=== PATIENT | male | born 1965 | race Caucasian/White ===

== ENCOUNTER 2021-02-17 18:55 | Inpatient (IN) | payer OTHER ==
[~2021-02-17] VITALS: Ht 175.3 cm; Wt 108.3 kg
[2021-02-17] MEDS ORDERED: ACETAMINOPHEN325 M1 PO (20:19)
[2021-02-17] MEDS ORDERED: ASA81BEC PO (20:20)
[2021-02-17] MEDS ORDERED: ARICEPT10 M1 PO (20:20)
[2021-02-17] MEDS ORDERED: FLUOXETINE HCL20 M1 PO (20:20)
[2021-02-17] MEDS ORDERED: LEVO-T50 MCG PO (20:20)
[2021-02-17] MEDS ORDERED: ELIQUIS5 MG PO (20:20)
[2021-02-17] MEDS ORDERED: NAMENDA 10 MG T10 MG PO (20:21)
[2021-02-17] MEDS ORDERED: RISPERDAL 1 MG T1 MG PO (20:21)
[2021-02-17] MEDS ORDERED: PROVERA2.5 MG PO (20:21)
[2021-02-17] MEDS ORDERED: OXYBUTYNIN 5 MG5 M2 PO (20:21)
[2021-02-17] MEDS ORDERED: SENNA PLUS TAB1 EACH PO (20:22)
--- NOTE | 2021-02-18 03:24 | NUR ---
ASSESSMENT: PT ALERT TO NAME AND PLACE. DID NOT KNOW THE DATE, THE PRESIDENTS NAME, THE DAY OF THE WEEK NOR THE SEASON. PT SLEEPS IN SUNGLASSES, STATE THAT THEY HELP HIM TO SLEEP BETTER. NO INJURIES, SCARS, NOR WOUNDS NOTED. VSS, AFEBRILE. PT CALM AND COOPERATIVE FOR NOW. AN EVAL FOR PT TO EVAL/TREAT FOR GAIT. HOPITALIST WAS CONSULTED. Familia SOTO GAVE TELEPHONE ORDERS FOR MEDS TO CONTINUE WITH PT. PT DID NOT VOICE ANY CONCERNS. WILL CONTINUE TO MONITOR.
[2021-02-18 09:41] LABS: FOLIC ACID 9.9 ng/mL (8.6-58.9)
--- NOTE | 2021-02-18 16:13 | NUR ---
Assumed pt care at 0700. pt was in his room resting. Alert and oriented to self. Assessments completed, vss. Pt took meds whole, no difficulty noted. Denies si/hi, denies pain at this time. No sign of acute distress noted upon assessments. Make needs known to staff. ambulates with a walker. calm, happy and cooperative with care. consent forms signed by DPOA via the phone. Dr Nguyễn, and Rigoberto assessed pt. DPOA visited pt during AM visiting hours. pt wander the unit. AT this time pt is sitting in the day room. Will continue to monitor pt.
[2021-02-18 19:56] VITALS: BP 130/97
--- NOTE | 2021-02-18 23:58 | NUR ---
ASSUMED CARE AT 1900, PATIENT LYING IN BED. NO S/S OF DISTRESS OR DISCOMFORT. DENIES PAIN/SI/HI/AVH/DEPRESSION. TOOK MEDS WHOLE WITHOUT DIFFICULTY, C/O WATER NOT BEING COLD ENOUGH. APPRECIATED BEING GIVEN ICE WATER. NO INNAPPROPRIATE BEHAVIORS NOTED. PATIENT ON FALL PRECAUTIONS, BED ALARM ON. WILL MONITOR.
[2021-02-19 06:36] LABS: CHOLESTEROL 113 mg/dL (<200); HDL CHOLESTEROL 38 mg/dL (>40); LDL CHOLESTEROL 60 mg/dL (<100); TRIGLYCERIDE 77 mg/dL (<150); VLDL 15 mg/dL (<40)
[2021-02-19 06:37] LABS: SERUM ASSESSMENT Clear
[2021-02-19 09:12] VITALS: BP 109/79
--- NOTE | 2021-02-19 09:46 | NUR ---
New admit to [facility] with dementia and inappropriate behavior. Ate 100%, + BM. Folate is depleted 9.9-on replacement. Presents low nutrition risk. Will follow weekly intake and wt trends.
--- NOTE | 2021-02-19 14:41 | NUR ---
PT VERY FLAT TODAY. AFEBRILE, ADEQUATE UOP, NO BM, APPROPRIATE APPETITE. NO BEHAVIORAL ISSUES. PT DID NOT SEEM INTERESTED IN JOINING IN ON GROUP ACTIVITIES. PT HAS BEEN THOUROUGHLY UPDATED AND EDUCATED ON CONDITION AND POC.
[2021-02-19 19:37] VITALS: BP 130/82
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
[2021-02-20 01:07] LABS: GLYCOHEMOGLOBIN (HGB A1C) 5.9 % (4.8-5.6)
--- NOTE | 2021-02-20 02:50 | NUR ---
PATIENT CARE RESUMED AT 1900. PATIENT SAT AT TABLE IN DAY AREA COLORING WITH A PEER. NO INNAPPROPRIATE/SEXUAL BEHAVIORS OBSERVED OR REPORTED. 1 X ASSIST WITH TOILETING AND ADLS. INDEPENDENT WITH WALKER, UNSTEADY AT TIMES. CONFUSED, ORIENTED TO SELF ONLY. HAD LARGE BM X 2, ONCE IN BRIEF AND ONCE IN TOILET. INCONTINANT OF URINE. TOOK MEDS WHOLE WITHOUT DIFFICULTY.
[2021-02-20 08:37] VITALS: BP 126/81
--- NOTE | 2021-02-20 11:34 | NUR ---
PT ALERT AND ORIENTED TIMES FOUR, WITH BRIGHT AFFECT. PT DENIES SI/HI/AH/VH/PAIN/SOA. PT INTERACTS WELL WITH STAFF AND PEERS. PT TOLEARTES MEDS AND MEALS. PT UP WALKING AROUND THYE UNIT WITH A WALKER AND STEADY GAIT. WILL CONTINUE TO MONITOR.
[2021-02-20 19:40] VITALS: BP 131/71
[2021-02-20 21:11] VITALS: BP 131/71
--- NOTE | 2021-02-20 21:59 | NUR ---
2128 RESUMMED CARE FROM DAY SHIFT THIS PM, PATIENT IN ROOM LYING QUIET IN BED. PATIENT ALERT ORIENTED TIMES 4 PATIENT DENIES SI/HI/AH/VH AT PRESENT. PATIENTS ABDOMEN SOFT BOWEL SOUNDS PRESENT, PATIENTS LUNGS CLEAR. PATIENT CALM COOPERATIVE TOOK MEDICATION WITHOUT INCDENCE. PATIENT HAS NOT DISPLAYED ANY BEHAVIORS WILL CONTINUE TO MONITOR FOR SAFETY AND BEHAVIORS.
[2021-02-21 08:37] VITALS: BP 114/73
--- NOTE | 2021-02-21 10:53 | NUR ---
PLEASANT AND COOPERATIVE WITH REQUESTS OF STAFF-IS VISIBLE IN DAYROOM BUT NO NOTED INTERACTION WITH PEERS-EITHER WATCHING TV OR SITTING QUIETLY DURING UNSTRUCTURED TIME. DOES ATTEND SCHEDULED GROUPS AND WILL RESPOND WITH PROMPTING. GAIT STEADY WITHOUT ASSISTIVE DEVICES. NO SEXUALLY INAPPROAPRIATE BEHAVIOR NOTED OR REPORTED. NEUTRALL AFFECT. EATING WELL. ORIENTED TO PERSON/PLACE.
[2021-02-21 19:33] VITALS: BP 138/82
[2021-02-21 20:10] VITALS: BP 138/82
--- NOTE | 2021-02-22 03:03 | NUR ---
PATINET CARE WAS RESUMED AT 1900. HE IS ALERT AND SITTING IN THE DINING AREA. HE DENES PAINS/SI/AVH/HI. HE IS CONTINET OF BOWEL AND BLADDER. LUNGS ARE CLEAR, BS ACTIVE X4 QUADS. TOOK HIS MEDS WHOLE AND NO BEHAVOIOR RECORDED AT THIS TIME. BED IS LOW, LOCKED ALARMED AND YELLOW SOCKS AND TOPS ARE ON. Q 12 MINUTES CHECKS ARE ONGOING CONTINUE CARE.
[2021-02-22 09:06] VITALS: BP 117/78
[2021-02-22 09:55] VITALS: BP 117/78
--- NOTE | 2021-02-22 10:59 | NUR ---
1058 RESUMMED CARE FROM OVERNIGHT THIS AM, PATIENT SITTING I DAY ROOM QUIET. PATIENT ATE BREAKFAST TOOK MEDICATION WITHOUT INCIDENCE PATIENT ALERT ORIENTED TIMES 3. PATIENT DENIES SI/HI/AH/VH AT PRESENT. PATIENTS ABDOMEN SOFT BOWEL SOUNDS PRESENT. PATIENTS LUNGS CLEAR PATIENT CALM COOPERATIVE HAS NOT DISPLAYED ANY BEHAVIORS. PATIENT PARTICIPATED IN GROUPS WILL CONTINUE TO MONITOR PATIENT FOR SAFETY AND BEHAVIORS.
--- NOTE | 2021-02-22 13:42 | NUR ---
RUBEN contacted De and gave a verbal update on pt; she explained that pt has not had any behaviors and will likely discharge by end of week. He said okay. He asked SW to fax a referral to [facility]. He voiced understanding that if [facility] does not take him when he is ready for d/c that he will go back to [facility]. RUBEN asked if they were willing to see how pt responds when he returns as opposed to finding new placment. De explained that [facility] is now involved and there has been complications with that, so that is why finding new placement is necessary. RUBEN faxed a referral to [facility]. RUBEN faxed updates to [facility] at [phone]. When pt is ready for d/c De will be involved at [phone]. RUBEN team will continue to follow pt during her stay on this unit.
[2021-02-22 19:59] VITALS: BP 141/87
--- NOTE | 2021-02-23 02:13 | NUR ---
LYNDSAY CARE WAS RESUMED AT 1900. HE WAS SITTING IN THE DAY AREA WITH THER PATIENT. HE S ABLE TO VERBALIZE NEEDS/. DENIES PAINS/ SI/AVH/. SHE HAS THE YELLOW TO AND SCK IS ON. SHEIS ON Q 12 MINUTES CHECK FOE SAFETY. BED IS LOW ALARMED AND LOCKED. CONTINUE CARE AND MONITOR.
[2021-02-23 09:30] VITALS: BP 109/78
--- NOTE | 2021-02-23 09:35 | NUR ---
RUBEN received a call from Nat with the [facility] office asking if [facility] was dumping pt. RUBEN responded no, they would like new placement but they fully are aware that they must take this pt back if no new placement is identified. She said ok, and that pt's DPOA is stating that [facility] told her pt is now welcomed back. RUBEN explained that she spoke with the DPOA yesterday and told her they were looking at a facility in [place], and she was not happy with that option. Nat stated that maybe pt got information confused and she will call her back and clarify. SW Team will continue to follow pt during his stay on this unit.
--- NOTE | 2021-02-23 11:00 | NUR ---
0700 ASSUMED CARE OF PATIENT, PATIENT AMB WITH WALKER WITH STEADY GAIT. PATIENT CALM QUIET. DENIES NEEDS. PATIENT PRESENT IN GROUP THIS AM. [facility] OBSERVED SOME ADMISSION ORDERS HAD NOT BEEN COMPLETED. ADMIT ORDERS AND NURSING ORDERS HAVE BEEN ADDED AT 1035.
--- NOTE | 2021-02-23 18:52 | NUR ---
PATIENT CALM AND COOPERATIVE, LS CLEAR, BS ACTIVE. DENIES NEEDS. AMB WITH STEADY GAIT WITH WALKER.
[2021-02-23 20:10] VITALS: BP 125/68
[2021-02-23 20:15] VITALS: BP 125/68
--- NOTE | 2021-02-24 02:03 | NUR ---
PATINET CARE WAS RESUMED AT 1900. HE IS IN THE DAY ROOM AND HE WENT TO ROOM AND LAID DOWN. HE IS ALERT AND ABLE TO VERBALIZE HIS NEED. LUNGS ARE CLEAR BS ACTIVE X4 QUADS. PT WAS UPSET AT THE EARLY PART OF THE SHIFT BUT HE BECAME OKAY FEW MINUTES LATER. HE IS ON FALL PRECAUTION. BED IS LOW, LOCK AND ALARMED. HE TOOK HIS PILLS WHOLE AND NO ISUES NOTED AT THIS TIME. CONTINUE CARE AND MONITOR. HE IS ON Q 12MINUTES CHECKS
[2021-02-24 08:56] VITALS: BP 129/88
[2021-02-24 19:35] VITALS: BP 131/88
--- NOTE | 2021-02-24 21:09 | NUR ---
PATIENT CARE ASSUMED AT 1900, PATIENT IN DAY ROOM AT THAT TIME. AMBULATES WITH WALKER, GAIT STEADY THIS EVENING. A&OX2, CALM AND COOPERATIVE, APPROPRIATE AFFECT. TOOK MEDS WHOLE WITHOUT DIFFICULTY. DENIES ANY PAIN, STATES HE IS IN A "GOOD" MOOD. DENIES SI/HI/AVH. INTERACTS WITH PEERS IN DAY AREA. EASILY REDIRECTABLE.
[2021-02-25 08:50] VITALS: BP 122/79
--- NOTE | 2021-02-25 10:56 | NUR ---
RT Progress Note- Rupesh has been active in both the milieu and recreation therapy groups since his admission. He has been very social with fellow patients, but has remained appropriate, not displaying any sexual behavior. TRUCK GREASER will continue to encourage participation and behavior.
--- NOTE | 2021-02-25 11:22 | NUR ---
RUBEN contacted [facility] yesterday and spoke to both De and Remedios discharge. She said the notes RUBEN sent on 02/22 were sent to an old e-fax. She asked RUBEN to fax updates to [phone]. Remedios and RUBEN agreed upon a 1030 discharge on 02/26. She asked RUBEN to arrange transportation for pt. RUBEN faxed updates to [phone]. RUBEN arranged transportation for pt with [facility] trip# [id number]. RUBEN team will continue to follow pt during her stay on this unit.
--- NOTE | 2021-02-25 15:56 | NUR ---
0700 ASSUMED CARE OF PATIENT, PATIENT CALM AND COOPERATIVE. AMB WITH WALKER WITH STEADY GAIT. MEDICATION TAKEN WHOLE WITHOUT DIFFICULTY. PRESENT IN GROUP TODAY. PATIENT SMILES AT TIMES, DENIED NEEDS. DENIES SI/HI. LS CLEAR, BS ACTIVE.
--- NOTE | 2021-02-25 19:00 | NUR ---
1800 PATIENT NOTED WITH INCREASED AGITATION DUE TO ANOTHER PATIENT SCREAMING. PATIENT STOOD UP AND WAS ASKED TO LIFT PANTS, PATIENT STARTED YELLING AND THROWING WALKER. STAFF APPROCHED HIM AND PATIENT STARTED YELLING IN NURSES FACE. MEDICAL SALES REPRESENTATIVE CALMLY TALKED TO PATIENT REDIRECTED PATIENT TO ROOM. PATIENT LAYS IN BED. RETURNS TO DAY ROOM CALM AND QUIET.
[2021-02-25 19:39] VITALS: BP 140/85
--- NOTE | 2021-02-26 00:49 | NUR ---
RESUMED PATIENT CARE AT 1900. PATIENT A&OX2, NO S/S OF DISTRESS OR DISCOMFORT. TOOK MEDS WHOLE WITHOUT DIFFICULTY. DENIES PAIN/HI/SI/AVH. AMBULATES WITH WALKER, STEADY GAIT. CALM, COOPERATIVE. NO BEHAVIORS OBSERVED.
[2021-02-26] MEDS ORDERED: DIVALPROEX SOD500 M1 PO (08:40)
[2021-02-26] MEDS ORDERED: PEPCID20 MG PO (08:44)
[2021-02-26] MEDS ORDERED: OXYBUTYNIN 5 MG5 M2 PO (08:44)
[2021-02-26] MEDS ORDERED: RISPERDAL 1 MG T1 MG PO (08:44)
[2021-02-26] MEDS ORDERED: TIROSINT75 MCG PO (08:44)
[2021-02-26] MEDS ORDERED: FOLIC ACID1 MG PO (08:44)
[2021-02-26] MEDS ORDERED: DEPAKOTE ER250 MG PO (08:47)
[2021-02-26 09:02] VITALS: BP 113/76
--- NOTE | 2021-02-26 10:58 | NUR ---
RUBEN D/C NOTE SW faxed discharge documents to [facility]. RUBEN will file docs in pt's hospital file. No other needs for SW team to address at this time.
--- NOTE | 2021-02-26 11:17 | NUR ---
PATIENT TRANSPORTED [facility]IA [facility] AT 10:45. MORNING MEDICATIONS ADMINISTERED. PATIENT CALM AND COOPERATIVE. ALL BELONGINGS SENT WITH PATIENT. DOCUMENTATION GIVEN TO CLAIMS SORTER TO SUPPLY TO FACILITY. PATIENT PRESCRIPTIONS SENT WITH PATIENT WELL. VITALS STABLE AT TRANSPORT. HAD LARGE BOWEL MOVEMENT PRIOR TO LEAVING AND ASSISTED WITH CHANGING. SOILED JOGGING PANTS SENT ALONG WITH NOTE UNABLE TO CLEAN SINCE CLAIM[facility] HERE WAITING TO TRANSPORT PATIENT. CALLED FACILITY AT 11:25 WITH REPORT.
== END 2021-02-26 11:21 | DRG 884 ==
LOC: SBH → EDBD 02-18 00:22 → SBH 02-26 11:21
PROVIDERS: ADMIT Psychiatry & Neurology Psychiatry; ATTEND Psychiatry & Neurology Psychiatry
DX: F03.91 Unspecified dementia, unspecified severity, with behavioral disturbance (principal); I69.351 Hemiplegia and hemiparesis following cerebral infarction affecting right dominant side; I11.9 Hypertensive heart disease without heart failure; E78.5 Hyperlipidemia, unspecified; F32.9 Major depressive disorder, single episode, unspecified; E03.9 Hypothyroidism, unspecified; F63.9 Impulse disorder, unspecified; K59.09 Other constipation; Z79.899 Other long term (current) drug therapy; Z79.82 Long term (current) use of aspirin; Z87.891 Personal history of nicotine dependence
CPT/HCPCS: 10880

== ENCOUNTER 2021-02-17 19:46 | Emergency (ER) | payer OTHER ==
[~2021-02-17] VITALS: Ht 193 cm; Wt 106.6 kg
[2021-02-17] MEDS ORDERED: ACETAMINOPHEN325 M1 PO (20:19)
[2021-02-17] MEDS ORDERED: FLUOXETINE HCL20 M1 PO (20:20)
[2021-02-17] MEDS ORDERED: LEVO-T50 MCG PO (20:20)
[2021-02-17] MEDS ORDERED: ELIQUIS5 MG PO (20:20)
[2021-02-17] MEDS ORDERED: ASA81BEC PO (20:20)
[2021-02-17] MEDS ORDERED: ARICEPT10 M1 PO (20:20)
[2021-02-17] MEDS ORDERED: OXYBUTYNIN 5 MG5 M2 PO (20:21)
[2021-02-17] MEDS ORDERED: NAMENDA 10 MG T10 MG PO (20:21)
[2021-02-17] MEDS ORDERED: RISPERDAL 1 MG T1 MG PO (20:21)
[2021-02-17] MEDS ORDERED: PROVERA2.5 MG PO (20:21)
[2021-02-17] MEDS ORDERED: SENNA PLUS TAB1 EACH PO (20:22)
[2021-02-17 20:43] LABS: HEMATOCRIT 37.4 % (42.0-52.0); HEMOGLOBIN 12.5 gm/dL (14.0-18.0); MCHC 33.4 g/dL (28.0-37.0); MCV 92.8 fL (80.0-100.0); RBC 4.03 mil/uL (4.50-6.00); RDW 14.6 % (10.5-14.5); WBC 7.7 thou/uL (4.0-11.0)
[2021-02-17 20:47] LABS: CALCIUM 8.5 mg/dL (8.5-10.1); CREATININE 1.1 mg/dL (0.7-1.3)
[2021-02-17 20:53] LABS: ALBUMIN 3.5 g/dL (3.4-5.0); TOTAL BILIRUBIN 0.3 mg/dL (0.2-1.0)
[2021-02-17 23:34] LABS: URINE BILIRUBIN NEGATIVE (Negative); URINE BLOOD NEGATIVE (Negative); URINE CLARITY CLEAR; URINE COLOR YELLOW; URINE GLUCOSE-RANDOM* NEGATIVE (Negative); URINE KETONES NEGATIVE (Negative); URINE LEUKOCYTES-REFLEX NEGATIVE (Negative); URINE NITRITE-REFLEX NEGATIVE (Negative); URINE PROTEIN (DIPSTICK) NEGATIVE (Negative); URINE SPECIFIC GRAVITY >= 1.030 (1.005-1.035)
[2021-02-18 00:18] VITALS: BP 138/87
--- NOTE | 2021-02-18 07:26 | EKG ---
[facility] [address] [place] [address] ELECTROCARDIOGRAM REPORT Name: TERRENCE GANNON Room #: DEP KODI Hollis#: [id number] Admission: 02/17/21 Attend Phys: Discharge: 02/18/21 Date of : 61 Report #: [id number] [facility] ED Test Date: 2021-02-17 Test Time: 20:43:21 Pat Name: TERRENCE GANNON Department: Room: Gender: M Utilities Service Investigator: mpadonna : 1965 Requested By: Khris Obrien Order Number: [id number] MD: Kristopher Shepherd Measurements Intervals Barney Rate: 73 P: 91 MD: 160 QRS: 71 QRSD: 86 T: 54 QT: 402 QTc: 443 Interpretive Statements Sinus rhythm Probable left atrial enlargement Minimal ST elevation, inferior leads Baseline wander in lead(s) V1,V5 No previous ECG available for comparison Electronically Signed On 02-18-2021 7:25:48 CDT by Kristopher Shepherd [email or web address] <ELECTRONICALLY SIGNED> By: Kristopher Shepherd MD, [facility] 02/18/21724 42 2043 Kristopher Shepherd MD, FACC /EPI
== END 2021-02-18 00:19 ==
LOC: ER 19:46 → EDBD 19:46 → ER 02-18 00:19
PROVIDERS: Emergency Medicine
DX: R46.89 Other symptoms and signs involving appearance and behavior (principal)